=== PATIENT | male | born 2000 | race Asian ===

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

== ENCOUNTER 2022-01-02 23:13 | Emergency (ER) | payer MEDICAID ==
[2022-01-03] MEDS ORDERED: Ketorolac Tromethamine 30 MG/ML VIAL ONE (01:15)
[2022-01-03] MEDS ORDERED: Metoclopramide HCl 10 MG/2 ML VIAL ONE (01:15)
[2022-01-03] MEDS ORDERED: diphenhydrAMINE 50 MG/ML VIAL ONE (01:16)
== END 2022-01-03 02:52 | disposition home or self-care (01) ==
LOC: ERS 23:13
DX: R51.9 Headache, unspecified (principal)
CPT/HCPCS: 96374; 96375; J1200; J1885; J2765